=== PATIENT | female | born 1995 | race Caucasian/White ===

== ENCOUNTER 2025-02-12 07:51 | Emergency (ER) | payer OTHER, SELFPAY ==
[2025-02-12 08:01] VITALS: BP 138/89; PULSE 105; TEMP 36.7; O2SAT 98; BMI 30.3
--- NOTE | 2025-02-12 08:10 | ED.GENADUL1 ---
HPI HPI - General Adult General Chief complaint: Nausea/Vomiting/Diarrhea Stated complaint: WEAKNESS VOMITTING Time Seen by Provider: 02/12/25 08:00 Source: patient Mode of arrival: walk-in Limitations: no limitations History of Present Illness HPI narrative: Patient is a 29-year-old female who is presenting to the ER with 7 to 10 days of flulike symptoms. Last Saturday and patient started with flulike symptoms of cough, cold, congestion. Last Saturday patient started having nausea, vomiting. Patient went to [facility] ER and was tested and was positive for influenza A on Saturday. Patient was given a prescription of Zofran. Patient went to the ER secondary to nausea and vomiting. Zofran is not helping with patient nausea and vomiting. Patient was at work on Saturday, and patient stated she had a few episodes of vomiting but did not leave work. Patient works for the [employer]. Patient did not go to work yesterday, patient is well to be working today. Patient feels lightheaded, no dizziness, no vertigo. No headache or neck pain. No chest pain or shortness of breath. No abdominal pain, she does have mild abdominal cramping. She does have midepigastric discomfort. No other acute complaints. Patient's friend is at bedside. All systems are negative except as noted/marked. All systems reviewed and otherwise negative. Nurses note and vital signs reviewed and patient is not hypoxic. General: The patient appears well and in no apparent distress. Patient is resting comfortably on cart. Patient is not toxic, lethargic, or listless Skin: Warm, dry, no pallor noted. There is no rash noted. No petechiae, purpura. Several tattoos, no secondary signs of infection. Head: Normocephalic, atraumatic Eye: Normal conjunctiva, no drainage, EOMI. PERRL Ears, Nose, Mouth, and Throat: oral mucosa is moist. Nares patent. Mouth without vesicles. Cardiovascular: Regular Rate and Rhythm, no murmur, gallop, rub Respiratory: Patient is in no distress, no accessory muscle use, lungs are clear to auscultation, no wheezing, rales or rhonchi Back: non-tender, no CVA tenderness bilaterally to percussion. No CT LS midline pain GI: Moderate midepigastric tenderness to palpation, no right upper quadrant or left upper quadrant tenderness to palpation, abdomen is soft, no flank pain bilateral, no peritoneal signs. Otherwise no tenderness to palpation, no masses appreciated. No rebound, guarding, or rigidity noted. No distention Musculoskeletal: Patient has full range of motion of all of the extremities, no motor, sensory, or focal neurological deficits Neurological: A&O x4, normal speech Psychiatric: Cooperative Related Data Home Medications ?Medication ?Instructions ?Recorded ?Confirmed ondansetron 4 mg disintegrating 4 mg PO TID-QID PRN nausea and 02/12/25 02/12/25 tablet vomiting Previous Rx's ?Medication ?Instructions ?Recorded ciprofloxacin HCl 500 mg tablet 500 mg PO BID 3 days #6 tabs 02/12/25 ondansetron 4 mg disintegrating 4 mg PO Q4H PRN nausea and 02/12/25 tablet vomiting 3 days #6 tabs promethazine 25 mg rectal 25 mg VA Q6H PRN nausea and 02/12/25 suppository vomiting #6 ea Allergies Allergy/AdvReac Type Severity Reaction Status Date / Time No Known Drug Allergies Allergy Verified 02/12/25 08:06 Opioid HPI Opioid Management Most Recent Opioid Data: No Data to Display PFSH PFSH Social History Little interest or pleasure in doing things: not at all Feeling down, depressed, or hopeless: not at all Exam Constitutional Vital Signs, click to edit/add: Last Vital Signs Temp 97.4 F L 02/12/25 08:57 Pulse 72 02/12/25 08:57 Resp 18 02/12/25 08:57 BP 105/74 02/12/25 08:57 Pulse Ox 97 02/12/25 08:57 Course Vital Signs Vital signs: Vital Signs Temperature 98.1 F 02/12/25 08:01 Pulse Rate 105 H 02/12/25 08:01 Respiratory Rate 18 02/12/25 08:01 Blood Pressure 138/89 02/12/25 08:01 Pulse Oximetry 98 02/12/25 08:01 Temperature 97.4 F L 02/12/25 08:57 Pulse Rate 72 02/12/25 08:57 Respiratory Rate 18 02/12/25 08:57 Blood Pressure 105/74 02/12/25 08:57 Pulse Oximetry 97 02/12/25 08:57 Medical Decision Making MDM Narrative Medical decision making narrative: Patient was given IV Pepcid, Zofran, Compazine, and IV fluids. Basic lab work was checked, patient has been sick for 8 to 9 days with influenza A symptoms along with nausea and vomiting. Patient was given Zofran and Compazine. Patient was able to tolerate ice chips. 0910 patient has evidence of UTI as well, she has bacteria and white blood cells. Patient feels much better after 1 L of IV fluids. Patient was given Zofran and Compazine. Patient be sent home a prescription for Cipro along with Zofran and Phenergan suppositories. Patient was given a work note. No question at discharge. Lab Data Labs: Lab Results 02/12/25 02/12/25 Range/Units 08:05 08:10 WBC 6.4 (4.0-11.0) 10^3/uL RBC 5.09 (4.20-5.40) 10^6/uL Hgb 14.9 (12.0-16.0) g/dL Hct 44.8 (36.0-48.0) % MCV 88.0 (81.0-99.0) fL MCH 29.3 (26.7-34.0) pg MCHC 33.3 (29.9-35.2) g/dL RDW 12.3 (11.0-15.0) % Plt Count 250 (150-450) 10^3/uL MPV 10.0 (9.5-13.5) fL Neut % (Auto) 52.7 (43.0-75.0) % Lymph % (Auto) 39.3 (20.5-60.0) % [place] % (Auto) 6.7 (1.7-12.0) % Eos % (Auto) 0.9 (0.9-7.0) % Baso % (Auto) 0.2 (0.2-2.0) % Neut # (Auto) 3.4 (1.4-6.5) 10^3/uL Lymph # (Auto) 2.5 (1.2-3.8) 10^3/uL Candler # (Auto) 0.4 (0.3-0.8) 10^3/uL Eos # (Auto) 0.1 (0.0-0.7) 10^3/uL Baso # (Auto) 0.0 (0.0-0.1) 10^3/uL Abs Immat Gran (auto) 0.01 (0.00-0.03) 10^3/uL Imm/Tot Granulo (auto) 0.2 (0.0-0.5) % Sodium 139 (136-145) mmol/L Potassium 4.3 (3.5-5.1) mmol/L Chloride 105 (98-107) mmol/L Carbon Dioxide 24.8 (21.0-32.0) mmol/L Anion Gap 13.5 BUN 8.0 (7.0-18.0) mg/dL Creatinine 0.81 (0.55-1.02) mg/dL Est GFR ( Amer) >60 (>=60 mL/min/1.73m^2) Est GFR (Non-Af Amer) >60 (>=60 mL/min/1.73m^2) BUN/Creatinine Ratio 9.9 Glucose 100 (74-106) mg/dL Calcium 8.9 (8.5-10.1) mg/dL Magnesium 2.3 (1.8-2.4) mg/dL Total Bilirubin 0.4 (0.2-1.0) mg/dL AST 34 (15-37) U/L ALT 66 H (14-59) U/L Alkaline Phosphatase 75 (46-116) U/L Total Protein 7.4 (6.4-8.2) g/dL Albumin 3.7 (3.4-5.0) g/dL Globulin 3.7 g/dL Albumin/Globulin Ratio 1.0 Lipase 46.0 (16.0-77.0) U/L Urine Color Yellow (YELLOW) Urine Clarity Sl cloudy (CLEAR) Urine pH 7.5 (5.0-9.0) Ur Specific [place] 1.020 (1.005-1.025) Urine Protein Negative (NEG/TRACE) mg/dL Urine Glucose (UA) Negative (NEGATIVE) mg/dL Urine Ketones Negative (NEGATIVE) mg/dL Urine Occult Blood Negative (NEGATIVE) Urine Nitrite Negative (NEGATIVE) Urine Bilirubin Negative (NEGATIVE) Urine Urobilinogen 0.2 (0.2-1.0) EU/dL Ur Leukocyte Esterase Negative (NEGATIVE) Urine RBC 0-2 (0-2) #/HPF Urine WBC 0-2 A (NONE SEEN) #/HPF Ur Squamous Epith Cells Few A (NONE/RARE) #/LPF Urine Crystals None seen (None Seen) #/HPF Urine Bacteria Moderate A (NONE SEEN) #/HPF Urine Casts None seen (NONE SEEN) #/LPF Urine Mucus Small A (NONE SEEN) Ur Culture Indicated? Yes-[facility] Urine HCG, Qual Negative (NEGATIVE) Discharge Plan Discharge Stand Alone Forms: Work/School Release Chief Complaint: Nausea/Vomiting/Diarrhea Clinical Impression: Nausea & vomiting, Influenza A, UTI (urinary tract infection) Patient Disposition: Home, Self-Care Time of Disposition Decision: 09:00 Condition: Fair Prescriptions / Home Meds: New promethazine 25 mg suppository 25 mg VA Q6H PRN (Reason: nausea and vomiting) Qty: 6 0RF ondansetron 4 mg tablet,disintegrating 4 mg PO Q4H PRN (Reason: nausea and vomiting) 3 Days Qty: 6 0RF ciprofloxacin HCl 500 mg tablet 500 mg PO BID 3 Days Qty: 6 0RF No Action ondansetron 4 mg tablet,disintegrating 4 mg PO TID-QID PRN (Reason: nausea and vomiting) Print Language: Indonesian Instructions: Urinary Tract Infection in Men (ED), Influenza (ED), Acute Nausea and Vomiting (DC) Additional Instructions: Start increasing fluids, Gatorade, Powerade, water. You can use Zofran and Phenergan suppositories if needed to help with nausea vomiting. Increase fluids. Work note given. Follow-up with PCP. Start using [id number] daily Pepcid, Prilosec, or [id number] antacid medication for midepigastric discomfort or acid reflux. Use Maalox or Mylanta as needed for rescue medication for heartburn or indigestion/acid reflux. Referrals: Physician,Non-Staff, MD [Primary Care Provider] - 1 week
[2025-02-12] MEDS: 0.9 % SODIUM CHLORIDE 1,000 ML 999 ML IV (08:15)
[2025-02-12] MEDS: ONDANSETRON 4 MG RAPDIS TABLET SL (08:15)
[2025-02-12] MEDS: PROCHLORPERAZINE 10 MG/2 ML VIAL 5 MG IV (08:15)
[2025-02-12] MEDS: FAMOTIDINE/PF 20 MG/2 ML VIAL IV (08:23)
[2025-02-12 08:30] LABS: Basophils Percent Auto 0.2 % (0.2-2.0); Eosinophils Absolute Auto 0.1 10^3/uL (0.0-0.7); Eosinophils Percent Auto 0.9 % (0.9-7.0); Hematocrit 44.8 % (36.0-48.0); Hemoglobin 14.9 g/dL (12.0-16.0); Immature Granulocytes Abs Auto 0.01 10^3/uL (0.00-0.03); Immature Granulocytes Pct Auto 0.2 % (0.0-0.5); Lymphocytes Absolute Auto 2.5 10^3/uL (1.2-3.8); Lymphocytes Percent Auto 39.3 % (20.5-60.0); Mean Corpuscular HGB Conc 33.3 g/dL (29.9-35.2); Mean Corpuscular Hemoglobin 29.3 pg (26.7-34.0); Monocytes Absolute Auto 0.4 10^3/uL (0.3-0.8); Monocytes Percent Auto 6.7 % (1.7-12.0); Neutrophils Absolute Auto 3.4 10^3/uL (1.4-6.5); Neutrophils Percent Auto 52.7 % (43.0-75.0); Platelet Count 250 10^3/uL (150-450); Red Blood Count 5.09 10^6/uL (4.20-5.40); Red Cell Distribution Width 12.3 % (11.0-15.0); White Blood Count 6.4 10^3/uL (4.0-11.0)
[2025-02-12 08:33] LABS: Bilirubin Urine NEGATIVE (NEGATIVE); Blood Urine NEGATIVE (NEGATIVE); Clarity Urine SL CLOUDY (CLEAR); Color Urine YELLOW (YELLOW); Glucose Urine UA NEGATIVE (NEGATIVE); Ketones Urine NEGATIVE (NEGATIVE); Leukocyte Esterase Urine NEGATIVE (NEGATIVE); Nitrite Urine NEGATIVE (NEGATIVE); Protein Urine NEGATIVE (NEG/TRACE); Urobilinogen Urine 0.2 EU/dL (0.2-1.0); pH Urine 7.5 (5.0-9.0)
[2025-02-12 08:41] LABS: Bacteria Urine MODERATE #/HPF (NONE SEEN); Cast Seen? NONE SEEN #/LPF (NONE SEEN); Crystals Seen? None Seen #/HPF (None Seen); Mucus Urine SMALL (NONE SEEN); RBC Urine 0-2 #/HPF (0-2); Squamous Epithelial Cell Urine FEW #/LPF (NONE/RARE); Urine Culture Indicated YES-FRMC; WBC Urine 0-2 #/HPF (NONE SEEN)
[2025-02-12 08:46] LABS: Alanine Aminotransferase 66 U/L (14-59); Albumin Level 3.7 g/dL (3.4-5.0); Alkaline Phosphatase 75 U/L (46-116); Anion Gap 13.5; Aspartate Amino Transferase 34 U/L (15-37); BUN Creatinine Ratio 9.9; Bilirubin Total 0.4 mg/dL (0.2-1.0); Calcium 8.9 mg/dL (8.5-10.1); Carbon Dioxide 24.8 mmol/L (21.0-32.0); Chloride 105 mmol/L (98-107); Estimated GFR (African America >60 (>=60 mL/min/1.73m^2); Estimated GFR (Non-African Ame >60 (>=60 mL/min/1.73m^2); Globulin 3.7 g/dL; Glucose 100 mg/dL (74-106); Magnesium 2.3 mg/dL (1.8-2.4); Potassium 4.3 mmol/L (3.5-5.1); Sodium 139 mmol/L (136-145); Total Protein 7.4 g/dL (6.4-8.2)
[2025-02-12 08:57] VITALS: BP 105/74; PULSE 72; TEMP 36.3; O2SAT 97
[2025-02-12 09:02] LABS: HCG Qualitative Urine* NEGATIVE (NEGATIVE); Internal Control Within Normal Limits
== END 2025-02-12 09:16 | disposition home or self-care (01) ==
PROVIDERS: Emergency Provider Emergency Medicine
DX: N39.0 Urinary tract infection, site not specified (principal); J10.1 Influenza due to other identified influenza virus with other respiratory manifestations; R11.2 Nausea with vomiting, unspecified
CPT/HCPCS: 36415; 80053; 81001; 83690; 83735; 84703; 85025; 87086; 96361; 96374; 96375; 99285; J0780; J3490; Q0162